=== PATIENT | female | born 1950 | race African-American/Black ===

== ENCOUNTER 2016-09-10 15:15 | Emergency (ER) | payer MEDICAID ==
[~2016-09-10] VITALS: Ht 167.6 cm; Wt 59.0 kg
[~2016-09-10 15:15] MED LIST: ALBUTEROL SULF8.5 GM INH; AZITHROMYCIN250 MG ORAL; CYCLOBENZAPRINE10 MG ORAL; IBUPROFEN600 MG ORAL; MULTIVITAMINS1 EA14 PO; NORCO 5-325 TA1 EACH ORAL; PREMARIN0.3 MG ORAL; VITAMIN D31000 UNI2 PO
[2016-09-10 15:30] VITALS: BP 134/78
[2016-09-10] MEDS ORDERED: PROMETH-CODEIN 65 ML PO (16:10)
[2016-09-10] MEDS ORDERED: PROAIR HFA8.5 GM INH (16:10)
[2016-09-10] MEDS ORDERED: PREDNISONE20 MG ORAL (16:10)
[2016-09-10] MEDS ORDERED: ZITHROMAX250 MG ORAL (16:10)
[2016-09-10 16:24] VITALS: BP 134/78
--- NOTE | 2016-09-10 17:49 | Emergency Room Report ---
History of Present Illness General Chief Complaint: Upper Respiratory Illness Source: Patient Present Illness [facility] The patient is a 66-year-old female with a history of chronic bronchitis presenting for productive cough and shortness of breath for the past 2 days. Sputum described as thick and yellow. She denies any pain and denies fever or chills. She denies any sick contacts recent travel. She has not taken any medications for the symptoms. 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 Review of Systems All Other Systems: negative except mentioned in HPI Physical Exam Vital Signs Date Time Temp Pulse Resp B/P Pulse Ox O2 Delivery O2 Flow Rate FiO2 09/10/16 15:20 97.9 88 15 134/78 94 Room Air 09/10/16 15:30 99 Sp02 EP Interpretation: reviewed, normal General Appearance: no apparent distress, alert, GCS 15, non-toxic Head: normocephalic, atraumatic Eyes: bilateral eye PERRL, bilateral eye normal inspection ENT: hearing grossly normal, normal pharynx, no angioedema, normal voice Neck: full range of motion, no bony tend, supple/symm/no masses Respiratory: chest non-tender, lungs clear, normal breath sounds, no wheezing, speaking full sentences Cardiovascular #1: regular rate, rhythm, no edema Musculoskeletal: back normal, gait/station normal, normal range of motion, non- tender Neurologic: alert, oriented x3, responsive, motor strength/tone normal, sensory intact, speech normal Psychiatric: judgement/insight normal, memory normal, mood/affect normal, no suicidal/homicidal ideation Skin: normal color, no rash, warm/dry, well hydrated Lymphatic: no adenopathy Medical Decision Making PA Attestation Dr. Fox is my supervising physician. Patient management was discussed with my supervising physician Diagnostic Impression: Primary Impression: Bronchitis ER Course The patient is a 66-year-old female with a history of chronic bronchitis presenting for productive cough Differential diagnosis include but not limited to pharyngitis, sinusitis, bronchitis, PNA Physical exam: Afebrile. No apparent distress. HEENT exam is unremarkable Lungs are clear to auscultation bilaterally. No respiratory distress Chest x-ray is unremarkable The patient will be discharged home with prescription for oral steroids, albuterol, cough medication, and azithromycin due to a history of chronic bronchitis. She is to followup with primary doctor or ER precautions given Chest X-Ray Diagnostic Results Chest X-Ray Diagnostic Results : Chest X-Ray Ordered: Yes # of Views/Limited/Complete: 1 View Indication: Shortness of Breath EP Interpretation: Yes Interpretation: no consolidation, no effusion, no pneumothorax, no acute cardiopulmonary disease Impression: No acute disease Interpreting ER Provider: Dr. Dominiuqe MATHEWS Scribe Text I am acting as scribe for my supervising physician. My supervising physician's interpretation of the chest xrays are there is no consolidation, no effusion, no acute cardiopulmonary disease, no pneumothorax Last Vital Signs Date Time Temp Pulse Resp B/P Pulse Ox O2 Delivery O2 Flow Rate FiO2 09/10/16 16:24 97.9 15 134/78 94 Room Air 99 09/10/16 15:30 88 Status: improved Disposition: HOME, SELF-CARE Condition: Improved Scripts Azithromycin* (ZITHROMAX*) 250 Mg Tablet 250 MG ORAL DAILY, #6 TAB 0 Refills Take two tables once daily for 1 day, then one tablet once daily for 4 days. Prov: TERZIAN,REED P.A. 09/10/16 Promethazine HCl/Codeine (Prometh-Codein 6.25-10 mg/5 ml) 5 Ml Syrup 5 ML PO Q6HR, #118 ML Prov: TERZIAN,REED P.A. 09/10/16 Albuterol Sulfate* (PROAIR HFA*) 8.5 Gm Hfa.aer.ad 2 PUFFS INH Q6H, #8.5 GM 0 Refills Prov: TERZIAN,REED P.A. 09/10/16 Prednisone* (PREDNISONE*) 20 Mg Tablet 40 MG ORAL DAILY, #10 TAB Prov: TERZIAN,REED P.A. 09/10/16 Referrals: NOT CHOSEN [facility]/MD,REFERRING (PCP) Patient Instructions: Acute Bronchitis Additional Instructions: I discussed my findings with the patient. All questions and concerns have been answered. Treatment and medication compliance have been addressed. I advised the patient that they need to follow up with PMD in 3-5 days. Return to ED if symptoms worsen, new symptoms arise, or if needed for any reason. Patient verbalized understanding of discharge instructions. REED VINCENT Sep 10, 2016 17:49
--- NOTE | 2016-09-11 06:58 | Diagnostic Imaging Report ---
Indications: Cough Technique: Portable AP chest Findings: Comparison: 05/19/14 Cardiac silhouette remains normal in size. Pulmonary vasculature remains within normal limits. Lungs remain symmetrically hyperinflated. Lungs and pleura remain clear. Mild calcification of the aortic arch, multiple old, healed left rib fractures again noted.. IMPRESSION: No evidence of acute disease, unchanged Stable chronic changes as described
== END 2016-09-10 16:15 | disposition home or self-care (01) ==
LOC: EMR 15:53
DX: J40 Bronchitis, not specified as acute or chronic (principal); I10 Essential (primary) hypertension; Z88.1 Allergy status to other antibiotic agents; F17.200 Nicotine dependence, unspecified, uncomplicated
CPT/HCPCS: 71010; 99284

== ENCOUNTER 2016-11-25 11:42 | Emergency (ER) | payer MEDICAID ==
[~2016-11-25] VITALS: Ht 167.6 cm; Wt 58.5 kg
[~2016-11-25 11:42] MED LIST changes: +PREDNISONE20 MG ORAL; +PROAIR HFA8.5 GM INH; +PROMETH-CODEIN 65 ML PO; +ZITHROMAX250 MG ORAL
[2016-11-25] MEDS ORDERED: Methocarbamol 750mg tab ORAL ONE (12:00)
[2016-11-25] MEDS ORDERED: IBUPROFEN600 MG ORAL (12:09)
[2016-11-25] MEDS ORDERED: ROBAXIN-750750 MG PO (12:09)
--- NOTE | 2016-11-25 12:09 | Emergency Room Report ---
History of Present Illness General Chief Complaint: Female Urogenital Problems Source: Patient Present Illness HPI 66-year-old female no significant past medical history p/w back pain for 6 days. Pain is localized to right lower back, sharp in nature, radiating down to buttocks. Movement worsens pain. There are no alleviating factors. Patient has experienced this similar pain in the past. Denies trauma. Denies lower extremity weakness/numbness, no bowel/bladder retention or incontinence, saddle anesthesia. Denies fever, chills, abdominal pain, n/v, dysuria/hematuria. No history of IVDA Patient states that she saw her primary care doctor, who told her that she has a kidney infection. Patient denies any fever chills dysuria or hematuria. Patient states that doctor prescribed her Bactrim, but did not do any blood tests her urine test. 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 Review of Systems All Other Systems: negative except mentioned in HPI Physical Exam Vital Signs Date Time Temp Pulse Resp B/P (MAP) Pulse Ox O2 Delivery O2 Flow Rate FiO2 11/25/16 11:46 97.3 83 17 135/85 96 Room Air Sp02 EP Interpretation: reviewed, normal General Appearance: normal inspection, well appearing, no apparent distress, alert, GCS 15, non-toxic Head: normocephalic, atraumatic Eyes: bilateral eye normal inspection, bilateral eye PERRL, bilateral eye EOMI ENT: normal ENT inspection, normal pharynx, normal voice, moist mucus membranes Neck: normal inspection, full range of motion, supple Respiratory: normal inspection, lungs clear, normal breath sounds, no respiratory distress, no retraction, no wheezing, speaking full sentences, chest symmetrical Cardiovascular #1: normal inspection, regular rate, rhythm, no edema, normal capillary refill Cardiovascular #2: 2+ radial (R), 2+ radial (L) Gastrointestinal: normal inspection, non tender, soft, non-distended, no guarding Genitourinary: no CVA tenderness Musculoskeletal: other - Right-sided paraspinal lower lumbar tenderness, no midline tenderness, straight leg test positive Neurologic: normal inspection, alert, oriented x3, responsive, motor strength/ tone normal, sensory intact, normal gait, speech normal, other - Motor strength 5 out of 5 both lower extremities Psychiatric: normal inspection, judgement/insight normal, memory normal Skin: normal inspection, normal color, no rash, warm/dry, well hydrated, normal turgor Medical Decision Making Diagnostic Impression: Primary Impression: Sciatica of right side Additional Impression: Back pain ER Course 66-year-old female p/w back pain DDX: likely musculoskeletal back pain vs. muscular strain vs. sciatica Lumbar fracture is unlikely given patients age, no midline tenderness, no history of trauma, and that patient is ambulatory. Therefore, at this time no imaging is indicated Serious diagnoses such as cord compression, epidural abscess is unlikely in this patient given the clinical scenario and abscess of neurological symptoms or findings. Patient appears nontoxic. Likely not to be pyelonephritis as previously diagnosed by her primary care doctor, patient is not having any fever chills dysuria hematuria, no CVA tenderness Plan: motrin, robaxin ER course: Patient has remained nontoxic appearing and ambulatory in the ED. Pain improved w/ medications Disposition: Patient will be discharged to home with prescription of motrin and robaxin. Patient cautioned of the effects of robaxin including possible impairment of physical or mental abilities. Patient was instructed to refrain from operating machinery or driving. Patient is also cautioned on the GI effects of motrin and to take sparingly. Patient verbalized understanding. Strict precautions discussed with patient on when to emergently return to the ED which includes severe/worsening back pain, leg weakness/numbness, urinary retention/incontinence, fever or chills, which may indicate severe illness. Patient is to follow up with their PMD within 5 days. Patient agrees with plan. Please note that this Emergency Department Report was dictated using [employer] technology software, occasionally this can lead to erroneous entry secondary to interpretation by the dictation equipment. Last Vital Signs Date Time Temp Pulse Resp B/P (MAP) Pulse Ox O2 Delivery O2 Flow Rate FiO2 11/25/16 11:46 97.3 83 17 135/85 96 Room Air Condition: Improved Scripts Methocarbamol* (ROBAXIN-750*) 750 Mg Tablet 750 MG PO QID, #28 TAB 0 Refills Prov: RetinoJoyceD. 11/25/16 Ibuprofen* (MOTRIN*) 600 Mg Tablet 600 MG ORAL Q8H Y for For Pain, #30 TAB 0 Refills Prov: Joyce Marte M.D. 11/25/16 Joyce Marte M.D. Nov 25, 2016 12:09
[2016-11-25 12:22] VITALS: BP 135/85
[2016-11-25 12:58] VITALS: BP 143/86
[2016-11-25 13:00] VITALS: BP 143/86
[2016-11-25] MEDS ORDERED: oxyCODONE HCL/Acetaminophen 5/325mg ORAL ONE (13:00)
== END 2016-11-25 13:02 | disposition home or self-care (01) ==
LOC: EMR 12:14
DX: M54.41 Lumbago with sciatica, right side (principal); I10 Essential (primary) hypertension
CPT/HCPCS: 99284

== ENCOUNTER 2017-07-05 09:30 | Emergency (ER) | payer MEDICAID, OTHER ==
[~2017-07-05] VITALS: Ht 167.6 cm; Wt 56.7 kg
[~2017-07-05 09:30] MED LIST changes: +ROBAXIN-750750 MG PO
[2017-07-05] MEDS ORDERED: ALBUTEROL SULF8.5 GM INH (09:46)
[2017-07-05] MEDS ORDERED: PREDNISONE20 MG ORAL (09:46)
[2017-07-05] MEDS ORDERED: AZITHROMYCIN250 MG ORAL (09:46)
[2017-07-05] MEDS ORDERED: PROMETHAZINE-C118 M1 ORAL (09:46)
[2017-07-05 09:54] VITALS: BP 165/81
--- NOTE | 2017-07-05 10:39 | Emergency Room Report ---
History of Present Illness General Chief Complaint: Upper Respiratory Illness Source: Patient, Medical Record Present Illness HPI 66-year-old female presents ED for evaluation of cough, headache. Started on Saturday. History of chronic bronchitis. States cough is productive with yellowish phlegm. Denies fevers or chills. Denies chest pain. Pain is sharp, 5 out of 10, nonradiating. Denies nausea or vomiting. Denies sick contacts or recent travel. No other aggravating relieving factors. 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 Review of Systems All Other Systems: negative except mentioned in HPI Physical Exam Vital Signs Date Time Temp Pulse Resp B/P (MAP) Pulse Ox O2 Delivery O2 Flow Rate FiO2 07/05/17 09:39 97.8 89 18 165/81 95 Room Air 97.9 Sp02 EP Interpretation: reviewed, normal General Appearance: no apparent distress, alert, GCS 15, non-toxic Head: normocephalic, atraumatic Eyes: bilateral eye normal inspection, bilateral eye PERRL ENT: hearing grossly normal, normal pharynx, no angioedema, normal voice Neck: full range of motion, supple/symm/no masses Respiratory: chest non-tender, lungs clear, normal breath sounds, speaking full sentences Cardiovascular #1: regular rate, rhythm, no edema Cardiovascular #2: 2+ carotid (R), 2+ carotid (L), 2+ radial (R), 2+ radial (L) , 2+ dorsalis pedis (R), 2+ dorsalis pedis (L) Gastrointestinal: normal bowel sounds, non tender, soft, non-distended, no guarding, no rebound Rectal: deferred Genitourinary: normal inspection, no CVA tenderness Musculoskeletal: back normal, gait/station normal, normal range of motion, non- tender Neurologic: alert, oriented x3, responsive, motor strength/tone normal, sensory intact, speech normal Psychiatric: judgement/insight normal, memory normal, mood/affect normal, no suicidal/homicidal ideation Reflexes: 3+ bicep (R), 3+ bicep (L), 3+ tricep (R), 3+ tricep (L), 3+ knee (R) , 3+ knee (L) Skin: normal color, no rash, warm/dry, well hydrated Lymphatic: no adenopathy Medical Decision Making Diagnostic Impression: Primary Impression: Chronic bronchitis with COPD (chronic obstructive pulmonary disease) ER Course Hospital Course 66-year-old female presents to ED complaining of cough, headache Differential diagnoses include: URI, pharyngitis, otitis media, asthma Clinical course Patient placed on stretcher. After initial history, physical exam reveals an elderly female in no acute distress. Bilateral TM unremarkable. No pharyngeal erythema. No tonsillar exudates. No lymphadenopathy. lungs clear. abdomen soft. Given history of chronic bronchitis we will prescribe antibiotics Diagnosis - chronic bronchitis Stable and discharged home with albuterol, prednisone, promethazine/codeine, zpack. Instructed to followup with PMD. Return to ED if symptoms recur or worsen Last Vital Signs Date Time Temp Pulse Resp B/P (MAP) Pulse Ox O2 Delivery O2 Flow Rate FiO2 07/05/17 09:54 97.8 18 165/81 95 Room Air 97.9 07/05/17 09:54 89 Status: improved Disposition: HOME, SELF-CARE Condition: Stable Scripts Azithromycin* (ZITHROMAX*) 250 Mg Tablet 250 MG ORAL DAILY, #6 TAB 0 Refills Take two tablets by mouth today, then take one tablet by mouth daily for four days Prov: Mushtaq Garner MD 07/05/17 Codeine/Promethazine Hcl* (PROMETHAZINE-CODEINE SYRUP*) 118 Ml Syrup 5 ML ORAL Q6H PRN for For Cough, #118 ML 0 Refills Prov: Mushtaq Garner MD 07/05/17 Albuterol Sulfate* (ALBUTEROL SULFATE MDI*) 8.5 Gm Hfa.aer.ad 2 PUFF INH Q6H, #1 EA 0 Refills Prov: Mushtaq Garner MD 07/05/17 Prednisone* (PREDNISONE*) 20 Mg Tablet 40 MG ORAL DAILY, #10 TAB Prov: Mushtaq Garner MD 07/05/17 Referrals: NOT CHOSEN [facility]/,REFERRING (PCP) Patient Instructions: Chronic Obstructive Pulmonary Disease Exacerbation, Easy- to-Read Mushtaq Garner MD Jul 05, 2017 10:39
== END 2017-07-05 10:00 | disposition home or self-care (01) ==
LOC: EMR 10:00
DX: J44.9 Chronic obstructive pulmonary disease, unspecified (principal); I10 Essential (primary) hypertension; Z88.1 Allergy status to other antibiotic agents
CPT/HCPCS: 99284

== ENCOUNTER 2017-08-22 10:38 | Emergency (ER) | payer OTHER ==
[~2017-08-22] VITALS: Ht 167.6 cm; Wt 61.2 kg
[~2017-08-22 10:38] MED LIST changes: +PROMETHAZINE-C118 M1 ORAL
[2017-08-22 10:51] VITALS: BP 158/93
[2017-08-22] MEDS: Ipratropium 0.02% Inh Soln 2.5ml UD HHN SCH ×3 (11:09→11:40)
[2017-08-22] MEDS: Albuterol ud Inhalation HHN SCH ×3 (11:09→11:40)
[2017-08-22] MEDS ORDERED: Promethazine/DM 6.25mg/5ml ORAL ONE (12:15)
[2017-08-22] MEDS ORDERED: ALBUTEROL SULF8.5 GM INH (12:24)
[2017-08-22] MEDS ORDERED: PREDNISONE20 MG ORAL (12:24)
[2017-08-22] MEDS ORDERED: PROMETHAZINE-C118 M1 ORAL (12:24)
[2017-08-22] MEDS ORDERED: AMOXICILLIN500 MG ORAL (12:24)
[2017-08-22 12:30] VITALS: BP 161/89
--- NOTE | 2017-08-22 13:13 | Emergency Room Report ---
History of Present Illness General Chief Complaint: Dyspnea/Respdistress Source: Patient, Medical Record Present Illness HPI 66-year-old female presents ED complaining of cough and congestion 2 days. History of COPD. History of bronchitis. Denies any fevers or chills. Denies chest pain. Denies sick contacts or recent travel. No other aggravating relieving factors. 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 Review of Systems All Other Systems: negative except mentioned in HPI Physical Exam Vital Signs Date Time Temp Pulse Resp B/P (MAP) Pulse Ox O2 Delivery O2 Flow Rate FiO2 08/22/17 10:41 98.3 113 28 159/92 84 Room Air 98.2 08/22/17 10:51 2.0 08/22/17 11:12 28 Sp02 EP Interpretation: reviewed, normal General Appearance: no apparent distress, alert, GCS 15, non-toxic Head: normocephalic, atraumatic Eyes: bilateral eye normal inspection, bilateral eye PERRL ENT: hearing grossly normal, normal pharynx, no angioedema, normal voice Neck: full range of motion, supple/symm/no masses Respiratory: chest non-tender, speaking full sentences, wheezing Cardiovascular #1: regular rate, rhythm, no edema Cardiovascular #2: 2+ carotid (R), 2+ carotid (L), 2+ radial (R), 2+ radial (L) , 2+ dorsalis pedis (R), 2+ dorsalis pedis (L) Gastrointestinal: normal bowel sounds, non tender, soft, non-distended, no guarding, no rebound Rectal: deferred Genitourinary: normal inspection, no CVA tenderness Musculoskeletal: back normal, gait/station normal, normal range of motion, non- tender Neurologic: alert, oriented x3, responsive, motor strength/tone normal, sensory intact, speech normal Psychiatric: judgement/insight normal, memory normal, mood/affect normal, no suicidal/homicidal ideation Reflexes: 3+ bicep (R), 3+ bicep (L), 3+ tricep (R), 3+ tricep (L), 3+ knee (R) , 3+ knee (L) Skin: normal color, no rash, warm/dry, well hydrated Lymphatic: no adenopathy Medical Decision Making Diagnostic Impression: Primary Impression: Chronic bronchitis with COPD (chronic obstructive pulmonary di... ER Course Hospital Course 66-year-old female presents to ED complaining of cough, SOB Differential diagnoses include: URI, bronchitis, asthma/COPD, pneumonia Clinical course Patient placed on stretcher. After initial history and physical I ordered prednisone, cough syrup and nebulizer treatment. Chest x-ray shows hyperinflated lungs consistent with COPD but no acute infiltrate or other process Upon reassessment patient states cough and symptoms have improved. Given history of COPD bronchitis we will prescribe antibiotics Diagnosis - chronic bronchitis with COPD Stable and discharged home with prescriptions for Rx promethazine, prednisone, amoxicillin, albuterol. Instructed to followup with PMD. Return to ED if symptoms recur or worsen Chest X-Ray Diagnostic Results Chest X-Ray Diagnostic Results : Chest X-Ray Ordered: Yes # of Views/Limited/Complete: 1 View Indication: Shortness of Breath EP Interpretation: Yes Interpretation: no consolidation, no effusion, no pneumothorax, other - hyperinflated lungs Impression: Other - copd Electronically Signed by: Electronically signed by Mushtaq Garner MD Last Vital Signs Date Time Temp Pulse Resp B/P (MAP) Pulse Ox O2 Delivery O2 Flow Rate FiO2 08/22/17 12:30 98.6 94 23 161/89 95 Room Air 98.3 08/22/17 11:13 2.0 28 Status: improved Disposition: HOME, SELF-CARE Condition: Stable Scripts Codeine/Promethazine Hcl* (PROMETHAZINE-CODEINE SYRUP*) 118 Ml Syrup 5 ML ORAL Q6H PRN for For Cough, #118 ML 0 Refills Prov: Mushtaq Garner MD 08/22/17 Albuterol Sulfate* (ALBUTEROL SULFATE MDI*) 8.5 Gm Hfa.aer.ad 2 PUFF INH Q6H, #1 EA 0 Refills Prov: Mushtaq Garner MD 08/22/17 Prednisone* (PREDNISONE*) 20 Mg Tablet 40 MG ORAL DAILY, #10 TAB Prov: Mushtaq Garner MD 08/22/17 Amoxicillin* (AMOXIL*) 500 Mg Capsule 500 MG ORAL THREE TIMES A DAY, #21 CAP Prov: Mushtaq Garner MD 08/22/17 Referrals: NON PHYSICIAN (PCP) Patient Instructions: Chronic Obstructive Pulmonary Disease Exacerbation Mushtaq Garner MD Aug 22, 2017 13:13
--- NOTE | 2017-08-22 14:39 | Diagnostic Imaging Report ---
Indication: Cough, shortness of breath Technique: One view of the chest Comparison: 09/10/2016 Findings: The lungs and pleural spaces are clear. Heart size is normal. The aorta is elongated and tortuous. Better inspiration currently Impression: Negative
== END 2017-08-22 12:30 | disposition home or self-care (01) ==
LOC: EMR 10:54
DX: J44.9 Chronic obstructive pulmonary disease, unspecified (principal)
CPT/HCPCS: 71045; 94640; 94664; 99284; J7512

== ENCOUNTER 2018-11-25 21:15 | Emergency (ER) | payer MEDICARE, OTHER ==
[~2018-11-25] VITALS: Ht 167.6 cm; Wt 59.0 kg
[~2018-11-25 21:15] MED LIST changes: +AMOXICILLIN500 MG ORAL
[2018-11-25 21:31] VITALS: BP 185/104
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
[2018-11-25] MEDS ORDERED: IBUPROFEN600 MG ORAL (22:39)
[2018-11-25] MEDS ORDERED: TESSALON PERLE100 MG ORAL (22:44)
[2018-11-25 22:48] VITALS: BP 154/98
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
== END 2018-11-25 22:48 | disposition home or self-care (01) ==
LOC: EMR 21:55
DX: S20.211A Contusion of right front wall of thorax, initial encounter (principal); J06.9 Acute upper respiratory infection, unspecified; I10 Essential (primary) hypertension; Z88.0 Allergy status to penicillin; Z88.1 Allergy status to other antibiotic agents; J44.9 Chronic obstructive pulmonary disease, unspecified; V43.52XA Car driver injured in collision with other type car in traffic accident, initial encounter; Y92.410 Unspecified street and highway as the place of occurrence of the external cause
CPT/HCPCS: 99283